=== PATIENT | female | born 1975 | race African-American/Black ===

== ENCOUNTER 2018-07-04 18:22 | Emergency (ER) | payer OTHER ==
[~2018-07-04] VITALS: Ht 162.6 cm; Wt 79.4 kg
[2018-07-04] MEDS ORDERED: NORCO 5-325 TA1 EACH PO (19:23)
[2018-07-04 19:35] VITALS: BP 157/98
--- NOTE | 2018-07-05 10:45 | EKG ---
[place] [address] ELECTROCARDIOGRAM REPORT Name: FERMIN BRANCH Room: [facility]#: [id number] Admission: 07/04/18 Attend Phys: Discharge: 07/04/18 Date of : 77 Report #: [id number] THIS REPORT FOR: //name// [facility] ED Test Date: 2018-07-04 Test Time: 18:32:01 Pat Name: FERMIN BRANCH Department: Room: Gender: F Search Analyst: DEAN : 1975 Requested By: Reyna Simon Order Number: [id number] MD: Stevo Larson Measurements Intervals [place] Rate: 104 P: 55 VT: 187 QRS: 26 QRSD: 71 T: 99 QT: 305 QTc: 402 Interpretive Statements Sinus tachycardia Borderline repolarization abnormality No previous ECG available for comparison Electronically Signed On 07-05-2018 10:45:21 CDT by Stevo Larson [email or web address] <ELECTRONICALLY SIGNED> By: Stevo Larson MD, [facility] 07/05/18 1045 1832 1832 Stevo Larson MD, FACC /EPI
== END 2018-07-04 19:36 | disposition home or self-care (01) ==
LOC: M.ERS 18:22
DX: M54.12 Radiculopathy, cervical region (principal)